=== PATIENT | male | born 1955 | race Caucasian/White ===

== ENCOUNTER 2023-07-22 18:54 | Inpatient (IN) | payer MEDICARE, OTHER ==
[2023-07-22] MEDS: ONDANSETRON 4 MG/2 ML VIAL IVP STA (20:07)
[2023-07-22] MEDS: SODIUM CHLORIDE 0.9% 1,000 ML IV STA (20:07)
[2023-07-22 20:09] LABS: Basophils # (A) 0.1 k/uL (0-0.2); Basophils % (A) 1 %; Eosinophils # (A) 0.3 k/uL (0-0.7); Eosinophils % (A) 4 %; HCT 41.4 % (39.0-53.0); HGB 13.6 gm/dL (13.0-17.5); Lymphocytes # (A) 0.2 k/uL (1.0-4.8); Lymphocytes % (A) 3 %; MCH 30.6 pg (25.0-35.0); MCV 92.7 fL (80.0-100.0); Monocytes # (A) 0.6 k/uL (0-1.0); Monocytes % (A) 8 %; Neutrophils # (A) 6.1 k/uL (1.3-7.7); Neutrophils % (A) 83 %; Platelet Count 239 k/uL (150-450); RBC 4.46 m/uL (4.30-5.90); RDW 13.3 % (11.5-15.5); WBC 7.4 k/uL (3.8-10.6)
[2023-07-22] MEDS: IPRATROPIUM-ALBUTEROL 3 ML NEB INHALATION STA (20:11)
[2023-07-22 20:19] LABS: Partial Thromboplastin Time 27.5 sec (22.0-30.0)
[2023-07-22 20:44] LABS: ALT 17 U/L (4-49); AST 24 U/L (17-59); African American GFR (CKD) >90 (>60 ml/min/1.73 sqM); Albumin 4.5 g/dL (3.5-5.0); Alkaline Phosphatase 48 U/L (38-126); Anion Gap 8 mmol/L; Blood Urea Nitrogen 20 mg/dL (9-20); Calcium 9.4 mg/dL (8.4-10.2); Carbon Dioxide 28 mmol/L (22-30); Chloride 103 mmol/L (98-107); Glucose 171 mg/dL (74-99); Magnesium 1.6 mg/dL (1.6-2.3); Non-African American GFR(CKD) >90 (>60 ml/min/1.73 sqM); Potassium 4.8 mmol/L (3.5-5.1); Sodium 139 mmol/L (137-145); Total Bilirubin 0.6 mg/dL (0.2-1.3); Total Protein 7.2 g/dL (6.3-8.2)
[2023-07-22] MEDS: ACETAMINOPHEN TAB 500 MG TAB PO STA (20:57)
[2023-07-22] MEDS: IBUPROFEN 800 MG TAB PO STA (20:58)
--- NOTE | 2023-07-22 21:07 | XR ---
EXAMINATION TYPE: XR chest 2V DATE OF EXAM: 07/22/2023 8:49 PM CLINICAL INDICATION:Male, 67 years old with history of Weakness; [facility] COMPARISON: None TECHNIQUE: XR chest 2V Frontal and lateral views of the chest. FINDINGS: Lungs/Pleura: There is no evidence of pleural effusion, focal consolidation, or pneumothorax. Pulmonary vascularity: Unremarkable. Heart/mediastinum: Cardiomediastinal silhouette is unremarkable. Musculoskeletal: No acute osseous pathology. IMPRESSION: No acute cardiopulmonary disease/process.
[2023-07-22 21:27] LABS: Appearance,Urine Clear (Clear); Bilirubin,Urine Negative (Negative); Blood,Urine Negative (Negative); Color,Urine Colorless; Glucose,Urine (UA) Negative (Negative); Ketones,Urine Negative (Negative); Leukocyte Esterase,Urine Negative (Negative); Nitrite,Urine Negative (Negative); Protein,Urine Trace (Negative); Specific Gravity,Urine 1.015 (1.001-1.035); Urobilinogen,Urine <2.0 mg/dL (<2.0)
[2023-07-22] MEDS ORDERED: ALBUTEROL HFA INHALER INHALATION PRN (22:32)
[2023-07-22] MEDS: methylPREDNISolone SOD SUCCI 125 MG/2 ML VIAL IV STA (22:45)
[2023-07-22] MEDS ORDERED: ACETAMINOPHEN TAB 325 MG TAB PO PRN (22:48)
[2023-07-22] MEDS ORDERED: IBUPROFEN 400 MG TAB PO PRN (22:48)
[2023-07-22] MEDS ORDERED: ONDANSETRON 4 MG/2 ML VIAL IVP PRN (22:48)
[2023-07-22] MEDS ORDERED: NALOXONE 0.4 MG/ML 1 ML VIAL IV PRN (22:48)
--- NOTE | 2023-07-22 23:01 | ED ---
General Adult HPI - General Chief complaint: Weakness Stated complaint: flu like symptoms Time Seen by Provider: 07/22/23 19:09 Source: patient, EMS, RN notes reviewed, old records reviewed Mode of arrival: EMS Limitations: no limitations - History of Present Illness Initial comments: Patient is a 67-year-old male who presents emergency department complaining of feeling ill. Has been having cough, congestion, generalized bodyaches, feeling generalized weakness. [place] was concern for stroke due to the weakness however patient states he feels weak all over and is febrile. Denies any vomiting but endorses nausea. Denies diarrhea. Denies abdominal pain. Has no other acute complaints at this time. Denies chest pain. Presents for further evaluation. Is in [place] for opiate abuse. - Related Data Allergies Allergy/AdvReac Type Severity Reaction Status Date / Time No Known Allergies Allergy Verified 07/22/23 20:46 Review of Systems ROS Statement: Those systems with pertinent positive or pertinent negative responses have been documented in the HPI. Review of Systems: CONST: Endorses fever EYES: Denies blurry vision ENT: Endorses nasal congestion C/V: Denies Chest pain RESP: Denies shortness of breath GI: Denies abdominal pain : Denies dysuria SKIN: Denies rash. MSK: Endorses joint pain NEURO: Denies headache ROS Other: All systems not noted in ROS Statement are negative. General Exam - General Exam Comments Initial Comments: General: Appears in no acute distress. Febrile. HEAD: Normal with no signs of head trauma. EYES: PERRLA, EOMI, conjunctiva normal, no discharge. ENT: Hearing grossly intact, normal oropharynx. RESPIRATORY: Bilateral end expiratory wheezing. Hypoxia when sleeping at 88 to 89%. 90 to 93% on room air when awake. C/V: Regular rate and rhythm. S1 and S2 auscultated, no edema, peripheral pulses 2+ and intact throughout ABD: Abd is soft, nontender, nondistended EXT: Normal range of motion, no obvious deformity SKIN: No rashes or lesions observed on exposed skin. NEURO: Alert and oriented x 4. Cranial nerves II-XII intact. No focal sensory or strength deficits. NIH is 0. GCS of 15. Limitations: no limitations Course Vital Signs 07/22/23 07/22/23 07/22/23 18:56 20:11 20:19 Temperature 102.3 F H Pulse Rate 82 81 85 Respiratory 18 Rate Blood Pressure 161/78 O2 Sat by Pulse 88 L Oximetry 07/22/23 07/22/23 21:07 22:48 Temperature 101.9 F H Pulse Rate 84 74 Respiratory 18 18 Rate Blood Pressure 155/74 136/65 O2 Sat by Pulse 88 L 93 L Oximetry Medical Decision Making - Medical Decision Making Was pt. sent in by a medical professional or institution (, PA, REVIEW COORDINATOR, urgent care, hospital, or skilled nursing...) When possible be specific @ -Sent from rehab for evaluation. Sent from [place]. Did you speak to anyone other than the patient for history (EMS, parent, family, police, friend...)? What history was obtained from this source @ -No Did you review nursing and triage notes (agree or disagree)? Why? @ -I reviewed and agree with nursing and triage notes Were old charts reviewed (outside hosp., previous admission, EMS record, old EKG, old radiological studies, urgent care reports/EKG's, skilled nursing records)? Report findings @ -Old charts reviewed Differential Diagnosis (chest pain, altered mental status, abdominal pain women, abdominal pain men, vaginal bleeding, weakness, fever, dyspnea, syncope, head ache, dizziness, GI bleed, back pain, seizure, CVA, palpatations, mental health, musculoskeletal)? @ -Differential Weakness: Hypoglycemia, shock, sepsis, hyponatremia, anemia, infection, MN, ETOH, adverse medicine reaction, overdose, stroke, this is not meant to be an all-inclusive list. EKG interpreted by me (3pts min.). @ -As above X-rays interpreted by me (1pt min.). @ -Chest x-ray shows no obvious acute cardiopulmonary process. CT interpreted by me (1pt min.). @ -None done U/S interpreted by me (1pt. min.). @ -None done What testing was considered but not performed or refused? (CT, X-rays, U/S, labs)? Why? @ -None What meds were considered but not given or refused? Why? @ -None Did you discuss the management of the patient with other professionals (professionals i.e. , PA, REVIEW COORDINATOR, lab, RT, psych nurse, social service worker, seamless tube drawer, teacher, biosecurity officer, bilingual case manager)? Give summary @ -I spoke with the admitting team, city call Dr. Graf who accepted the admission. Was smoking cessation discussed for >3mins.? @ -No Was critical care preformed (if so, how long)? @ -Yes, 33 minutes. Were there social determinants of health that impacted care today? How? (Homelessness, low income, unemployed, alcoholism, drug addiction, transportation, low edu. Level, literacy, decrease access to med. care, intermediate, rehab)? @ -No Was there de-escalation of care discussed even if they declined (Discuss DNR or withdrawal of care, Hospice)? DNR status @ -No What co-morbidities impacted this encounter? (DM, HTN, Smoking, COPD, CAD, Cancer, CVA, ARF, Chemo, Hep., AIDS, mental health diagnosis, sleep apnea, morbid obesity)? @ -Smoking history. Suspected COPD per patient. Was patient admitted / discharged? Hospital course, mention meds given and route, prescriptions, significant lab abnormalities, going to OR and other pertinent info. @ -Based on the patient's presentation and physical exam, presents emergency department complaining of weakness, generalized bodyaches, febrile illness. Sent for possible stroke workup due to the weakness but it is symmetrical with no obvious focal deficits. NIH is 0. Vital signs remarkable for fever. Intermittently becomes hypoxic especially when sleeping. Exam remarkable for COPD. We will obtain generalized weakness workup. He was in agreement this plan. He will receive antipyretics as well as IV fluids. Patient was in agreement this plan. Vital signs other than the fever within acceptable limits. Receive IV steroids as well as breathing treatment. He also received IV Zofran. Chest x-ray unremarkable. EKG unremarkable. Laboratory studies remarkable for a positive COVID infection. On reevaluation, patient is still intermittently hypoxic was placed on 2 L nasal cannula especially while sleeping. I did want to admit him to the hospital at this point with consult to pulmonology. Patient was in agreement this plan. I spoke with the admitting team, city call Dr. Graf who accepted the admission. We will continue with albuterol inhaler therapy as well as IV steroids. Undiagnosed new problem with uncertain prognosis? @ -No Drug Therapy requiring intensive monitoring for toxicity (Heparin, Nitro, Insulin, Cardizem)? @ -No Were any procedures done? @ -No Diagnosis/symptom? @ -COPD, hypoxia, COVID-19 infection Acute, or Chronic, or Acute on Chronic? @ -Acute Uncomplicated (without systemic symptoms) or Complicated (systemic symptoms)? @ -Complicated Side effects of treatment? @ -No Exacerbation, Progression, or Severe Exacerbation? @ -No Poses a threat to life or bodily function? How? (Chest pain, USA, MN, pneumonia, PE, COPD, DKA, ARF, appy, cholecystitis, CVA, Diverticulitis, Homicidal, Suicidal, threat to staff... and all critical care pts) @ -Yes - Lab Data Result diagrams: 07/22/23 19:30 07/22/23 19:30 Lab Results 07/22/23 07/22/23 07/22/23 Range/Units 19:30 19:30 19:30 WBC 7.4 (3.8-10.6) k/uL RBC 4.46 (4.30-5.90) m/uL Hgb 13.6 (13.0-17.5) gm/dL Hct 41.4 (39.0-53.0) % MCV 92.7 (80.0-100.0) fL MCH 30.6 (25.0-35.0) pg MCHC 33.0 (31.0-37.0) g/dL RDW 13.3 (11.5-15.5) % Plt Count 239 (150-450) k/uL MPV 7.0 Neutrophils % 83 % Lymphocytes % 3 % Monocytes % 8 % Eosinophils % 4 % Basophils % 1 % Neutrophils # 6.1 (1.3-7.7) k/uL Lymphocytes # 0.2 L (1.0-4.8) k/uL Monocytes # 0.6 (0-1.0) k/uL Eosinophils # 0.3 (0-0.7) k/uL Basophils # 0.1 (0-0.2) k/uL PT 11.0 (10.0-12.5) sec INR 1.0 (<1.2) APTT 27.5 (22.0-30.0) sec Sodium 139 (137-145) mmol/L Potassium 4.8 (3.5-5.1) mmol/L Chloride 103 (98-107) mmol/L Carbon Dioxide 28 (22-30) mmol/L Anion Gap 8 mmol/L BUN 20 (9-20) mg/dL Creatinine 0.81 (0.66-1.25) mg/dL Est GFR (CKD-EPI)AfAm >90 (>60 ml/min/1.73 sqM) Est GFR (CKD-EPI)NonAf >90 (>60 ml/min/1.73 sqM) Glucose 171 H (74-99) mg/dL Plasma Lactic Acid Ken (0.7-2.0) mmol/L Calcium 9.4 (8.4-10.2) mg/dL Magnesium 1.6 (1.6-2.3) mg/dL Total Bilirubin 0.6 (0.2-1.3) mg/dL AST 24 (17-59) U/L ALT 17 (4-49) U/L Alkaline Phosphatase 48 (38-126) U/L Total Protein 7.2 (6.3-8.2) g/dL Albumin 4.5 (3.5-5.0) g/dL Urine Color Urine Appearance (Clear) Urine pH (5.0-8.0) Ur Specific [place] (1.001-1.035) Urine Protein (Negative) Urine Glucose (UA) (Negative) Urine Ketones (Negative) Urine Blood (Negative) Urine Nitrite (Negative) Urine Bilirubin (Negative) Urine Urobilinogen (<2.0) mg/dL Ur Leukocyte Esterase (Negative) Influenza Type A (PCR) (Not Detectd) Influenza Type B (PCR) (Not Detectd) RSV (PCR) (Not Detectd) SARS-CoV-2 (PCR) (Not Detectd) Group A Strep (PCR) (Not Detectd) 07/22/23 07/22/23 07/22/23 Range/Units 19:30 21:07 21:07 WBC (3.8-10.6) k/uL RBC (4.30-5.90) m/uL Hgb (13.0-17.5) gm/dL Hct (39.0-53.0) % MCV (80.0-100.0) fL MCH (25.0-35.0) pg MCHC (31.0-37.0) g/dL RDW (11.5-15.5) % Plt Count (150-450) k/uL MPV Neutrophils % % Lymphocytes % % Monocytes % % Eosinophils % % Basophils % % Neutrophils # (1.3-7.7) k/uL Lymphocytes # (1.0-4.8) k/uL Monocytes # (0-1.0) k/uL Eosinophils # (0-0.7) k/uL Basophils # (0-0.2) k/uL PT (10.0-12.5) sec INR (<1.2) APTT (22.0-30.0) sec Sodium (137-145) mmol/L Potassium (3.5-5.1) mmol/L Chloride (98-107) mmol/L Carbon Dioxide (22-30) mmol/L Anion Gap mmol/L BUN (9-20) mg/dL Creatinine (0.66-1.25) mg/dL Est GFR (CKD-EPI)AfAm (>60 ml/min/1.73 sqM) Est GFR (CKD-EPI)NonAf (>60 ml/min/1.73 sqM) Glucose (74-99) mg/dL Plasma Lactic Acid Ken 1.5 (0.7-2.0) mmol/L Calcium (8.4-10.2) mg/dL Magnesium (1.6-2.3) mg/dL Total Bilirubin (0.2-1.3) mg/dL AST (17-59) U/L ALT (4-49) U/L Alkaline Phosphatase (38-126) U/L Total Protein (6.3-8.2) g/dL Albumin (3.5-5.0) g/dL Urine Color Colorless Urine Appearance Clear (Clear) Urine pH 7.0 (5.0-8.0) Ur Specific [place] 1.015 (1.001-1.035) Urine Protein Trace H (Negative) Urine Glucose (UA) Negative (Negative) Urine Ketones Negative (Negative) Urine Blood Negative (Negative) Urine Nitrite Negative (Negative) Urine Bilirubin Negative (Negative) Urine Urobilinogen <2.0 (<2.0) mg/dL Ur Leukocyte Esterase Negative (Negative) Influenza Type A (PCR) Not Detected (Not Detectd) Influenza Type B (PCR) Not Detected (Not Detectd) RSV (PCR) Not Detected (Not Detectd) SARS-CoV-2 (PCR) Detected A (Not Detectd) Group A Strep (PCR) (Not Detectd) 04/14/24 Range/Units 21:07 WBC (3.8-10.6) k/uL RBC (4.30-5.90) m/uL Hgb (13.0-17.5) gm/dL Hct (39.0-53.0) % MCV (80.0-100.0) fL MCH (25.0-35.0) pg MCHC (31.0-37.0) g/dL RDW (11.5-15.5) % Plt Count (150-450) k/uL MPV Neutrophils % % Lymphocytes % % Monocytes % % Eosinophils % % Basophils % % Neutrophils # (1.3-7.7) k/uL Lymphocytes # (1.0-4.8) k/uL Monocytes # (0-1.0) k/uL Eosinophils # (0-0.7) k/uL Basophils # (0-0.2) k/uL PT (10.0-12.5) sec INR (<1.2) APTT (22.0-30.0) sec Sodium (137-145) mmol/L Potassium (3.5-5.1) mmol/L Chloride (98-107) mmol/L Carbon Dioxide (22-30) mmol/L Anion Gap mmol/L BUN (9-20) mg/dL Creatinine (0.66-1.25) mg/dL Est GFR (CKD-EPI)AfAm (>60 ml/min/1.73 sqM) Est GFR (CKD-EPI)NonAf (>60 ml/min/1.73 sqM) Glucose (74-99) mg/dL Plasma Lactic Acid Ken (0.7-2.0) mmol/L Calcium (8.4-10.2) mg/dL Magnesium (1.6-2.3) mg/dL Total Bilirubin (0.2-1.3) mg/dL AST (17-59) U/L ALT (4-49) U/L Alkaline Phosphatase (38-126) U/L Total Protein (6.3-8.2) g/dL Albumin (3.5-5.0) g/dL Urine Color Urine Appearance (Clear) Urine pH (5.0-8.0) Ur Specific [place] (1.001-1.035) Urine Protein (Negative) Urine Glucose (UA) (Negative) Urine Ketones (Negative) Urine Blood (Negative) Urine Nitrite (Negative) Urine Bilirubin (Negative) Urine Urobilinogen (<2.0) mg/dL Ur Leukocyte Esterase (Negative) Influenza Type A (PCR) (Not Detectd) Influenza Type B (PCR) (Not Detectd) RSV (PCR) (Not Detectd) SARS-CoV-2 (PCR) (Not Detectd) Group A Strep (PCR) NOT DETECTED (Not Detectd) - EKG Data -: EKG Interpreted by Me EKG Comments: 12-lead Electrocardiogram Interpretation Note EKG was reviewed and interpreted by myself. 12-lead ECG performed at 2031 is interpreted by me as revealing normal sinus rhythm at a rate of 84 beats per minute. [place] is normal. CT interval is 167 ms, QRS duration is 80 ms, QTc is 318 ms.. There were no ST or T wave abnormalities to suggest myocardial ischemia or injury. R wave progression across the precordium was satisfactory. By my interpretation this EKG is non-diagnostic for acute ischemia. Critical Care Time Critical Care Time: Yes Total Critical Care Time: 33 Disposition Clinical Impression: COPD (chronic obstructive pulmonary disease), Hypoxia, COVID-19 virus infection Disposition: ADMITTED IP TO THIS HOSP Condition: Stable Referrals: None,Stated [Primary Care Provider] - 1-2 days Time of Disposition: 22:46
[2023-07-23] MEDS: HEPARIN SODIUM,PORCINE 5,000 UNIT/ML 1 ML VIAL SQ SCH
[2023-07-23] MEDS: SODIUM CHLORIDE 0.9% 1,000 ML IV SCH
[2023-07-23 07:16] LABS: Basophils % (A) 1 %; Eosinophils % (A) 0 %; HCT 39.3 % (39.0-53.0); HGB 12.2 gm/dL (13.0-17.5); Hypochromasia Slight; Lymphocytes # (A) 0.2 k/uL (1.0-4.8); Lymphocytes % (A) 5 %; MCH 30.3 pg (25.0-35.0); MCV 97.6 fL (80.0-100.0); Mean Platelet Volume 7.2; Monocytes # (A) 0.1 k/uL (0-1.0); Monocytes % (A) 2 %; Neutrophils # (A) 4.1 k/uL (1.3-7.7); Neutrophils % (A) 91 %; Platelet Count 205 k/uL (150-450); RBC 4.03 m/uL (4.30-5.90); RDW 13.1 % (11.5-15.5); WBC 4.5 k/uL (3.8-10.6)
[2023-07-23 08:12] LABS: ALT 18 U/L (4-49); AST 21 U/L (17-59); African American GFR (CKD) >90 (>60 ml/min/1.73 sqM); Albumin 3.5 g/dL (3.5-5.0); Alkaline Phosphatase 61 U/L (38-126); Anion Gap 10 mmol/L; Blood Urea Nitrogen 20 mg/dL (9-20); Calcium 8.6 mg/dL (8.4-10.2); Carbon Dioxide 22 mmol/L (22-30); Chloride 102 mmol/L (98-107); Non-African American GFR(CKD) >90 (>60 ml/min/1.73 sqM); Potassium 4.8 mmol/L (3.5-5.1); Sodium 134 mmol/L (137-145); Total Bilirubin 0.4 mg/dL (0.2-1.3)
[2023-07-23 08:23] VITALS: BP 135/75; PULSE 66; RESP 16; TEMP 97.8
[2023-07-23 08:28] LABS: Glucose 542 mg/dL (74-99)
[2023-07-23] MEDS ORDERED: methylPREDNISolone SOD SUCCI 40 MG/ML 1 ML VIAL IV SCH (09:00)
[2023-07-23] MEDS ORDERED: DEXTROSE 50% SYRINGE 50 ML IVP PRN ×2 (09:11)
[2023-07-23] MEDS: INSULIN ASPART (NovoLOG) 100 UNIT/ML VIAL SQ SCH ×2 (09:28→14:29)
[2023-07-23] MEDS: METHADONE 10 MG TAB PO SCH (10:06)
[2023-07-23] MEDS: METHADONE 5 MG TAB PO SCH (10:07)
[2023-07-23] MEDS: INSULIN DETEMIR (LEVEMIR) 100 UNIT/ML SYR SQ SCH (10:09)
--- NOTE | 2023-07-23 10:53 | P.CNPUL ---
History of Present Illness Consult date: 07/23/23 Requesting physician: Samantha Graf Reason for consult: dyspnea Chief complaint: Generalized weakness, body aches History of present illness: This is a 67-year-old male patient with a history of diabetes mellitus and opiate abuse and was currently at [facility]. He was brought here to the emergency room last evening with generalized weakness, body aches, cough and congestion. Chest x-ray showed no acute pulmonary process. White count 4.5. Hemoglobin 12.2. Platelets 205. Sodium 134. Potassium 4.8. Bicarb 22. BUN 20. Creatinine 0.78. He did test positive for COVID-19 infection. He is seen today in consultation on the regular medical floor. He is awake and alert in no acute distress. He is dressed and up ambulating in his room. He is maintaining O2 saturations in the 90s on room air. Denies any worsening shortness of breath, cough or congestion. Review of Systems REVIEW OF SYSTEMS: CONSTITUTIONAL: Positive for generalized weakness, fatigue. Denies any recent significant weight loss or weight gain. EYES: Denies change in vision. EARS, NOSE, MOUTH, THROAT: Denies headaches, denies sore throat. CARDIOVASCULAR: Denies chest pain, palpitations or syncopal episodes. RESPIRATORY: Positive for shortness of breath, cough, congestion no hemoptysis. GASTROINTESTINAL: Denies change in appetite, denies abdominal pain GENITOURINARY: Denies hematuria, denies infections. MUSKULOSKELETAL: Denies pain, denies swelling. INTEGUMENTARY: Denies rash, denies eczema. NEUROLOGICAL: Denies recent memory loss, no recent seizure activity. PSYCHIATRIC: Denies anxiety, denies depression. HEMATOLOGIC/LYMPHATIC: Denies anemia, denies enlarged lymph nodes. Past Medical History Past Medical History: No Reported History History of Any Multi-Drug Resistant Organisms: None Reported Past Surgical History: No Surgical Hx Reported Smoking Status: Current some day smoker Past Alcohol Use History: None Reported Past Drug Use History: Heroin, IV Drug Use Additional Drug Use History / Comment(s): patient stating he has been clean since 06/09/23 from fentanyl and heroin use. Lives in [place] Medications and Allergies Home Medications Medication Instructions Recorded Confirmed Type Acetaminophen Tab [Tylenol] 650 mg PO Q4H PRN 07/23/23 07/23/23 History Ibuprofen [Motrin Ib] 600 mg PO Q6H PRN 07/23/23 07/23/23 History Insulin Regular, Human [NovoLIN R] See Protocol SQ AC-TID 07/23/23 07/23/23 History Melatonin 10 mg PO HS 07/23/23 07/23/23 History Methadone [Dolophine] 75 mg PO DAILY 07/23/23 07/23/23 History guaiFENesin [guaiFENesin Oral 200 mg PO Q4H PRN 07/23/23 07/23/23 History Solution] Allergies Allergy/AdvReac Type Severity Reaction Status Date / Time No Known Allergies Allergy Verified 07/22/23 20:46 Physical Exam Vitals: Vital Signs Temp Pulse Pulse Resp BP BP BP 07/23/23 08:44 07/23/23 07:30 97.8 F 66 16 135/75 07/23/23 02:05 98.0 F 71 18 125/67 07/23/23 00:52 97.3 F L 87 20 132/63 07/22/23 22:48 74 18 136/65 07/22/23 21:07 101.9 F H 84 18 155/74 07/22/23 20:19 85 07/22/23 20:11 81 07/22/23 18:56 102.3 F H 82 18 161/78 Pulse Ox 07/23/23 08:44 97 07/23/23 07:30 94 L 07/23/23 02:05 93 L 07/23/23 00:52 93 L 07/22/23 22:48 93 L 07/22/23 21:07 88 L 07/22/23 20:19 07/22/23 20:11 07/22/23 18:56 88 L Intake and Output 07/22/23 07/23/23 07/23/23 22:59 06:59 14:59 Other: # Voids 2 Weight 72.575 kg 72.575 kg GENERAL EXAM: Alert, 67-year-old male patient, on room air, comfortable in no ap parent distress. HEAD: Normocephalic. EYES: Normal reaction of pupils, equal size. NOSE: Clear with pink turbinates. THROAT: No erythema or exudates. NECK: No masses, no JVD. CHEST: No chest wall deformity. LUNGS: Equal air entry with no crackles, wheeze, rhonchi or dullness. CVS: S1 and S2 normal with no audible murmur, regular rhythm. ABDOMEN: No hepatosplenomegaly, normal bowel sounds, no guarding or rigidity. SPINE: No scoliosis or deformity SKIN: No rashes CENTRAL NERVOUS SYSTEM: No focal deficits, tone is normal in all 4 extremities. EXTREMITIES: There is no peripheral edema. No clubbing, no cyanosis. Peripheral pulses are intact. Results - Laboratory Findings CBC and BMP: 07/23/23 06:34 07/23/23 06:34 PT/INR, D-dimer PT 11.0 sec (10.0-12.5) 07/22/23 19:30 INR 1.0 (<1.2) 07/22/23 19:30 Abnormal lab findings: Abnormal Labs 07/22/23 07/22/23 07/22/23 19:30 19:30 21:07 RBC Hgb Lymphocytes # 0.2 L Sodium Glucose 171 H Total Protein Urine Protein Trace H SARS-CoV-2 (PCR) 07/22/23 07/23/23 07/23/23 21:07 06:34 06:34 RBC 4.03 L Hgb 12.2 L Lymphocytes # 0.2 L Sodium 134 L Glucose 542 H* Total Protein 6.0 L Urine Protein SARS-CoV-2 (PCR) Detected A - Diagnostic Findings Chest x-ray: image reviewed Assessment and Plan Assessment: Acute hypoxemic respiratory failure secondary to COVID-19 infection, recovered and on room air Generalized weakness, fatigue secondary to COVID-19 infection History of opioid abuse, residing in [facility], on methadone Diabetes mellitus, type II Plan: The patient was seen and evaluated Currently stable and on room air Chest x-ray and labs reviewed Discontinue Solu-Medrol Levemir and NovoLog for blood sugar control Heparin for DVT prophylaxis Cleared for discharge from pulmonary standpoint Would recommend Paxlovid in the outpatient setting I have personally seen and examined the patient, performed the documentation and the assessment and plan as written. Number of minutes spent on the visit: 20.
[2023-07-23 10:58] LABS: Glucose,Whole Blood 499 mg/dL (70-110)
--- NOTE | 2023-07-23 12:45 | HP ---
HISTORY AND PHYSICAL This is a combined history and physical and discharge summary. CHIEF COMPLAINT: Weakness. HISTORY OF PRESENT ILLNESS: This is a 67-year-old gentleman with a past medical history of multiple medical problems, receiving rehab in [place], was admitted with flu-like symptoms, cough, congestion, generalized body aches, and the patient was found to have COVID-19 positive and glucose was elevated after steroids, is being controlled at this time. Pulmonary saw the patient and cleared the patient for discharge. There is no history of any fever, rigors, or chills. The patient will be discharged with continued symptomatic treatment. The patient had acute hypoxic respiratory failure, present on admission, recovered in room air. PAST MEDICAL HISTORY: Reviewed including smoking, heroin, IV drug abuse. Rest of the history and rest of the chart is also reviewed. HOME MEDICATIONS: Reviewed include methadone. Dose and rest of medications noted. ALLERGIES: None. FAMILY HISTORY: No history of heart disease or strokes in the family. SOCIAL HISTORY: History of heroin IV drug abuse. REVIEW OF SYSTEMS: Fourteen-point review is negative except as mentioned earlier. PHYSICAL EXAMINATION: VITAL SIGNS: Pulse is 66, blood pressure 135/72, respirations 16. HEENT: Conjunctivae normal. NECK: No JVD. CARDIOVASCULAR: S1, S2. RESPIRATIONS: A few scattered rhonchi. ABDOMEN: Soft, nontender. LEGS: No edema. NERVOUS SYSTEM: Nonfocal. SKIN: No ulcer, rash, bleeding. JOINTS: No active deforming arthropathy. LABORATORY DATA: WBC 4.5, hemoglobin 12.2, glucose 542. ASSESSMENT: 1. Acute COVID-19 infection with acute hypoxic respiratory failure, improved with home O2. 2. Diabetes mellitus, type 2, uncontrolled with hyperglycemia. 3. History of IV drug abuse. 4. History of heroin abuse. RECOMMENDATIONS: Recommend to continue current medications, continue symptomatic treatment. Otherwise, at this time I would recommend bronchodilators and D-dimer. The D-dimer is normal. The patient will be discharged with continued follow up with [place] and follow up with primary physician. Blood sugar also will be monitored and the blood sugar has to be at least less than 300 before being discharged. We will continue to monitor. See orders for further details. Prognosis guarded. MMODL / IJN: [id number] /
[2023-07-23 13:49] LABS: Glucose,Whole Blood 316 mg/dL (70-110)
== END 2023-07-23 16:20 | disposition other institution (70) | DRG 177 ==
LOC: EC 18:54 → 4SSUR 22:48 → 6NMEDSUR 07-23 00:25
PROVIDERS: ADMIT Internal Medicine; ATTEND Internal Medicine
DX: U07.1 COVID-19 (principal); J96.01 Acute respiratory failure with hypoxia; J44.9 Chronic obstructive pulmonary disease, unspecified; F17.200 Nicotine dependence, unspecified, uncomplicated; E11.65 Type 2 diabetes mellitus with hyperglycemia; T38.0X5A Adverse effect of glucocorticoids and synthetic analogues, initial encounter; F11.11 Opioid abuse, in remission; Z79.899 Other long term (current) drug therapy
CPT/HCPCS: 36415; 71046; 80053; 81003; 83605; 83735; 84145; 85025; 85379; 85610; 85730; 87040; 87636; 87651; 93005; 94640; 96361; 96372; 96374; 96375; 99291